=== PATIENT | female | born 1935 | race Two or more races ===

== ENCOUNTER 2017-02-03 22:33 | Emergency (ER) | payer SELFPAY ==
[~2017-02-03] VITALS: Ht 165.1 cm; Wt 81.0 kg
[2017-02-03 23:04] LABS: HEMATOCRIT 38.4 % (36.0-46.0); MCHC 33.1 G/DL (30.0-36.0); MCV 78.7 FL (83-99); MEAN PLAT.VOLUME 10.2 uM^3 (9.5-12.4); PLATELET COUNT 226 K/uL (156-360); RBC DIS.WIDTH-CV 15.3 % (11.8-14.6); RBC DIS.WIDTH-SD 43.4 % (39-53); RED BLOOD COUNT 4.88 M/uL (3.80-5.20); WHITE BLOOD COUNT 9.9 K/uL (4.1-10.2)
[2017-02-03 23:13] LABS: CHLORIDE 106 mEq/L (99-109); SODIUM 139 mEq/L (136-147)
[2017-02-03 23:15] LABS: GLUCOSE 267 mg/dL (70-99)
[2017-02-03 23:16] LABS: ANION GAP 10 MEQ/L (2-14); PROTHROMBIN TIME 11.1 SEC (10.2-12.9)
[2017-02-03 23:17] LABS: TOTAL BILIRUBIN 0.3 mg/dL (0.0-1.0)
[2017-02-03 23:19] LABS: ALKALINE PHOSPHATASE 92 IU/L (3-129)
[2017-02-03 23:20] LABS: UREA NITROGEN (BUN) 22 mg/dL (9-23)
[2017-02-03 23:23] LABS: GFR ESTIMATE (CALCULATED) 56 mL/min/
[2017-02-04 01:40] LABS: ADD MIUA? YES; BILIRUBIN NEGATIVE; BLOOD MODERATE; COLOR YELLOW ((YELLOW)); GLUCOSE (STRIP) 50; KETONES NEGATIVE; LEUKOCYTES TRACE; NITRITE NEGATIVE; PROTEIN (STRIP) NEGATIVE; SPECIFIC GRAVITY 1.028 (1.000-1.030); UROBILINOGEN 0.2 MG/DL (0.2-1.0)
[2017-02-04 01:44] LABS: BACTERIA NONE SEEN /HPF; EPITHELIAL CELLS RARE /HPF; HYALINE CASTS 0-5 /LPF; MUCUS TRACE /LPF; RED BLOOD CELLS 0-5 /HPF (0-5); UCUL ADDED? NO; WHITE BLOOD CELLS 0-5 /HPF (0-5)
[2017-02-04] MEDS ORDERED: COLACE100 MG PO (02:44)
[2017-02-04] MEDS ORDERED: PERCOCET 5/31 TABLET PO (03:12)
[2017-02-04 03:23] VITALS: BP 156/90
== END 2017-02-04 03:24 | disposition home or self-care (01) ==
LOC: EME 22:33
PROVIDERS: Emergency Medicine
DX: K43.9 Ventral hernia without obstruction or gangrene (principal); R10.84 Generalized abdominal pain; K59.00 Constipation, unspecified; R19.7 Diarrhea, unspecified; R50.9 Fever, unspecified; M54.5 Low back pain; R11.2 Nausea with vomiting, unspecified; R06.00 Dyspnea, unspecified; E11.65 Type 2 diabetes mellitus with hyperglycemia
CPT/HCPCS: 74177; 80053; 81003; 85027; 85610; 85730; 99281; 99285; J2405; J3010; J7030